=== PATIENT | male | born 2005 | race Caucasian/White ===

== ENCOUNTER 2025-07-14 16:17 | Outpatient (CLI) | payer SELFPAY ==
--- NOTE | 2025-07-14 17:37 | RADIOLOGY REPORT ---
EXAM: MR MRI UPPER EXTREMITY RIGHT INDICATION: SPRAIN OF OTHER PART OF RIGHT WRIST AND HAND, INIT ENCNTR TECHNIQUE: Multisequence, multiplanar MRI of the right wrist was performed in the absence of gadolinium contrast material. COMPARISON: None FINDINGS: CARPAL TUNNEL: The traversing flexor tendons are intact. Normal thickness of the overlying flexor retinaculum. Normal signal intensity and morphology of the median nerve. FLEXOR TENDONS: Intact without tenosynovitis. EXTENSOR TENDONS: Intact without tenosynovitis. 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 Triangular ligaments appear intact. Slight fraying of the meniscal homologue. EXTRINSIC/INTRINSIC LIGAMENTS: In regards to the clinical question, no definitive visualized scapholunate or lunotriquetral ligamentous injury. If continued clinical concern, consider follow-up MR arthrogram. JOINTS: Minimal fluid in the volar aspect of the distal radioulnar joint. No measurable cartilage defect. BONES: Normal. MUSCLES: Normal. NEUROVASCULAR: Normal signal intensity and morphology of the ulnar nerve at Guyon's canal. The radial neurovascular bundle is intact. OTHER: The surrounding soft tissues are unremarkable. IMPRESSION: 1. 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 2. In regards to the clinical question, no definitive visualized scapholunate or lunotriquetral ligamentous injury. 3. If continued clinical concern, consider follow-up MR arthrogram. 4. 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
== END 2025-07-14 23:59 | disposition home or self-care (01) ==
LOC: MRI02 16:17
PROVIDERS: ATTEND Orthopaedic Surgery
DX: S63.8X1A Sprain of other part of right wrist and hand, initial encounter (principal); X58.XXXA Exposure to other specified factors, initial encounter; Y93.89 Activity, other specified; Y92.89 Other specified places as the place of occurrence of the external cause; Y99.8 Other external cause status
CPT/HCPCS: 73221